=== PATIENT | female | born 1965 | race Hispanic/Latino ===

== ENCOUNTER 2021-03-26 07:20 | Emergency (ER) | payer OTHER ==
[2021-03-26 11:04] VITALS: BP 171/86
[2021-03-26] MEDS ORDERED: oxyCODONE /ACETAMINOPHEN 5-325MG TAB PO ONE (11:04)
[2021-03-26] MEDS ORDERED: KETOROLAC 60 MG/2 ML INJ IM ONE (11:04)
[2021-03-26] MEDS ORDERED: diphenhydrAMINE 25 MG CAP PO ONE (11:05)
--- NOTE | 2021-03-26 11:21 | Emergency Department Report ---
ED General Adult HPI - General Chief complaint: Shoulder Injury Stated complaint: SHOULDER AND ARM PAIN Time Seen by Provider: 03/26/21 11:04 Source: patient Mode of arrival: Ambulatory Limitations: No Limitations - History of Present Illness Initial comments: 55-year-old -[place] female patient presents with complaints of right shoulder pain starting last night after mechanical a fall injury. Patient states she fell onto her right shoulder. She rates her pain as a 10/10 in severity. She reports that she has had rotator cuff surgery on her right shoulder in the past. She denies any loss of sensation, but does admit to difficulty moving the shoulder due to pain. No preceding dizziness, chest pain, shortness of breath, confusion, or headache to the fall per patient. She does report a history of hypertension and states that she has not taken her blood pressure medications this morning Severity scale (0 -10): 10 - Related Data Previous Rx's Medication Instructions Recorded Last Taken Type Acetaminophen/Codeine [Tylenol 1 tab PO Q8H PRN #10 tab 03/26/21 Unknown Rx /Codeine # 3 tab] Naproxen 500 mg PO BID PRN #20 tab 03/26/21 Unknown Rx methocarbamoL [Methocarbamol] 750 mg PO TID PRN #20 03/26/21 Unknown Rx predniSONE [Deltasone] 20 mg PO BID #4 tab 03/26/21 Unknown Rx Allergies Allergy/AdvReac Type Severity Reaction Status Date / Time No Known Allergies Allergy Unverified 03/26/21 11:04 ED Review of Systems ROS: Stated complaint: SHOULDER AND ARM PAIN Other details as noted in HPI Respiratory: denies: shortness of breath Cardiovascular: denies: chest pain Musculoskeletal: arthralgia. denies: joint swelling Skin: denies: change in color Neurological: denies: numbness, paresthesias ED Past Medical Hx - Medications Home Medications: Home Medications Medication Instructions Recorded Confirmed Last Taken Type Acetaminophen/Codeine [Tylenol 1 tab PO Q8H PRN #10 tab 03/26/21 Unknown Rx /Codeine # 3 tab] Naproxen 500 mg PO BID PRN #20 tab 03/26/21 Unknown Rx methocarbamoL [Methocarbamol] 750 mg PO TID PRN #20 03/26/21 Unknown Rx predniSONE [Deltasone] 20 mg PO BID #4 tab 03/26/21 Unknown Rx ED Physical Exam - General Limitations: No Limitations General appearance: alert, in no apparent distress - Head Head exam: Present: atraumatic, normocephalic - Eye Eye exam: Present: normal appearance - Neck Neck exam: Present: normal inspection, full ROM. Absent: tenderness - Respiratory Respiratory exam: Present: normal lung sounds bilaterally. Absent: respiratory distress - Cardiovascular Cardiovascular Exam: Present: regular rate, normal rhythm - Expanded Upper Extremity Exam Right Shoulder Exam: Present: tenderness (Significant tenderness to palpation noted at the right humeral head and distal right clavicle without obvious deformities). Absent: full ROM, swelling Elbow exam: Present: normal inspection Forearm Wrist exam: Present: normal inspection Hand Wrist exam: Present: normal inspection Vascular: Present: normal capillary refill. Absent: vascular compromise, pulse deficit radial art, pulse deficit ulnar art - Neurological Exam Neurological exam: Present: alert, oriented X3, normal gait - Psychiatric Psychiatric exam: Present: normal affect, normal mood - Skin Skin exam: Present: warm, dry, intact, normal color. Absent: rash ED Course Vital Signs 03/26/21 11:02 Temperature 99.3 F Pulse Rate 85 Respiratory 16 Rate Blood Pressure 171/86 [Left] O2 Sat by Pulse 97 Oximetry ED Medical Decision Making - Radiology Data Radiology results: report reviewed RIGHT SHOULDER 3 VIEWS INDICATION: R shoulder pain after fall. COMPARISON: None. IMPRESSION: No acute osseous or soft tissue abnormality. No significant DJD. Signer Name: Stevie Myers Jr, MD Signed: 03/26/2021 11:30 AM Workstation Name: [id number] - Medical Decision Making 55-year-old -[place] female patient presents with complaints of right shoulder pain starting last night after mechanical a fall injury. Patient states she fell onto her right shoulder. She rates her pain as a 10/10 in severity. She reports that she has had rotator cuff surgery on her right shoulder in the past. She denies any loss of sensation, but does admit to difficulty moving the shoulder due to pain. No preceding dizziness, chest pain, shortness of breath, confusion, or headache to the fall per patient. She does report a history of hypertension and states that she has not taken her blood pressure medications this morning X-rays negative for any acute bony abnormalities. Patient given pain meds here in the ED. Range of motion improved, however is still somewhat limited. Patient placed in a shoulder sling and advised to follow-up with Ortho, referral provided. She is otherwise well-appearing and stable for discharge home. No neuro symptoms. Patient also advised to take her blood pressure medication as soon as she gets home. Strict return precautions were discussed in detail with patient who verbalizes understanding Critical care attestation.: If time is entered above; I have spent that time in minutes in the direct care of this critically ill patient, excluding procedure time. ED Disposition Clinical Impression: Right shoulder injury Disposition: HOME / SELF CARE / HOMELESS Is pt being admited?: No Condition: Stable Instructions: Rotator Cuff Tendinitis Prescriptions: predniSONE [Deltasone] 20 mg PO BID #4 tab methocarbamoL [Methocarbamol] 750 mg PO TID PRN #20 PRN Reason: muscle spasm/tightness Naproxen 500 mg PO BID PRN #20 tab PRN Reason: Pain, Moderate (4-6) Acetaminophen/Codeine [Tylenol /Codeine # 3 tab] 1 tab PO Q8H PRN #10 tab PRN Reason: Pain , Severe (7-10) Referrals: [facility] [Provider Group] - 3-5 Days Forms: Work/School Release Form(ED)
--- NOTE | 2021-03-26 11:34 | XRay Report ---
RIGHT SHOULDER 3 VIEWS INDICATION: R shoulder pain after fall. COMPARISON: None. IMPRESSION: No acute osseous or soft tissue abnormality. No significant DJD. Signer Name: Stevie Myers Jr, MD Signed: 03/26/2021 11:30 AM Workstation Name: [id number]
== END 2021-03-26 12:41 | disposition home or self-care (01) ==
LOC: ED 07:20
DX: S49.91XA Unspecified injury of right shoulder and upper arm, initial encounter (principal); Z98.890 Other specified postprocedural states; W19.XXXA Unspecified fall, initial encounter; Y93.89 Activity, other specified; Y92.89 Other specified places as the place of occurrence of the external cause; Y99.8 Other external cause status
CPT/HCPCS: 73030; 96372; 99283; J1885